=== PATIENT | female | born 1995 | race Caucasian/White ===

== ENCOUNTER 2024-12-21 14:13 | Emergency (ER) | payer MEDICAID, OTHER ==
[~2024-12-21] VITALS: Ht 170.2 cm; Wt 63.5 kg
[2024-12-21 14:15] VITALS: O2SAT 97
[2024-12-21] MEDS ORDERED: AMOX-427 PO (14:57)
[2024-12-21] MEDS ORDERED: FLUC200T PO (14:57)
[2024-12-21] MEDS ORDERED: DIAZ5TAB4 PO (14:57)
[2024-12-21] MEDS ORDERED: IBUP-1955 PO (14:57)
== END 2024-12-21 15:04 | disposition home or self-care (01) ==
LOC: ER 14:13
DX: K01.1 Impacted teeth (principal); Z60.2 Problems related to living alone
CPT/HCPCS: A4606; A4663

== ENCOUNTER 2025-01-21 11:37 | Emergency (ER) | payer MEDICAID ==
[~2025-01-21] VITALS: Ht 170.2 cm; Wt 61.2 kg
[~2025-01-21 11:37] MED LIST: AMOX-427 PO; DIAZ5TAB4 PO; FLUC200T PO; IBUP-1955 PO
[2025-01-21] MEDS ORDERED: DIAZ5TAB4 PO (12:44)
[2025-01-21 12:54] VITALS: BP 120/81; O2SAT 99
== END 2025-01-21 12:54 | disposition home or self-care (01) ==
LOC: ER 11:39
DX: F41.9 Anxiety disorder, unspecified (principal); Z88.6 Allergy status to analgesic agent; Z60.2 Problems related to living alone
CPT/HCPCS: A4606; A4663

== ENCOUNTER 2025-03-13 16:45 | Emergency (ER) | payer SELFPAY ==
[~2025-03-13] VITALS: Ht 170.2 cm; Wt 59.0 kg
[2025-03-13] MEDS ORDERED: DIAZ5TAB4 PO (17:31)
[2025-03-13] MEDS ORDERED: FLUC200T PO (17:31)
[2025-03-13 17:44] VITALS: BP 117/71; TEMP 98.6; O2SAT 100
== END 2025-03-13 17:38 | disposition home or self-care (01) ==
LOC: ER 16:50
DX: F41.9 Anxiety disorder, unspecified (principal); F17.210 Nicotine dependence, cigarettes, uncomplicated; Z88.6 Allergy status to analgesic agent; Z76.0 Encounter for issue of repeat prescription; Z60.2 Problems related to living alone
CPT/HCPCS: A4606; A4663

== ENCOUNTER 2025-04-21 14:36 | Emergency (ER) | payer MEDICAID ==
[~2025-04-21] VITALS: Ht 170.2 cm; Wt 59.0 kg
[2025-04-21 14:37] VITALS: BP 123/73; O2SAT 96
== END 2025-04-21 18:12 | disposition left against medical advice (07) ==
LOC: ER 14:36
DX: T78.40XA Allergy, unspecified, initial encounter (principal); Z53.21 Procedure and treatment not carried out due to patient leaving prior to being seen by health care provider; X58.XXXA Exposure to other specified factors, initial encounter
CPT/HCPCS: A4606; A4663

== ENCOUNTER 2025-04-24 15:51 | Emergency (ER) | payer MEDICAID ==
[~2025-04-24] VITALS: Ht 170.2 cm; Wt 59.0 kg
[2025-04-24 19:33] VITALS: BP 109/72
[2025-04-24] MEDS ORDERED: IBUP-1955 PO (21:51)
[2025-04-24 21:55] VITALS: BP 105/70; TEMP 98.6; O2SAT 98
== END 2025-04-24 21:55 | disposition home or self-care (01) ==
LOC: ER 15:51
DX: F41.9 Anxiety disorder, unspecified (principal); F17.210 Nicotine dependence, cigarettes, uncomplicated; Z76.0 Encounter for issue of repeat prescription; Z88.6 Allergy status to analgesic agent; Z60.2 Problems related to living alone
CPT/HCPCS: A4606; A4663

== ENCOUNTER 2025-05-08 19:08 | Emergency (ER) | payer MEDICAID, OTHER ==
[~2025-05-08] VITALS: Ht 170.2 cm; Wt 60.8 kg
[2025-05-08 19:11] VITALS: BP 93/58
[2025-05-08 19:54] LABS: *URINE HCG, QUAL NEGATIVE (NEGATIVE)
[2025-05-08] MEDS ORDERED: METR500T PO (19:59)
[2025-05-08] MEDS ORDERED: DROS4TAB PO (20:01)
[2025-05-08 20:11] VITALS: BP 101/59; TEMP 98; O2SAT 98
[2025-05-11 03:07] LABS: *CHLAMYDIA NAA Negative (Negative); *GC NAA Negative (Negative); *TRIC.VAG. NAA Negative (Negative)
== END 2025-05-08 20:10 | disposition home or self-care (01) ==
LOC: ER 19:20
DX: N89.8 Other specified noninflammatory disorders of vagina (principal); B96.89 Other specified bacterial agents as the cause of diseases classified elsewhere; F17.210 Nicotine dependence, cigarettes, uncomplicated; F41.9 Anxiety disorder, unspecified; Z76.0 Encounter for issue of repeat prescription; Z88.6 Allergy status to analgesic agent; Z60.2 Problems related to living alone
CPT/HCPCS: 84703; 87491; A4606; A4663

== ENCOUNTER 2025-06-10 13:33 | Emergency (ER) | payer MEDICAID, OTHER ==
[~2025-06-10] VITALS: Ht 170.2 cm; Wt 61.2 kg
[~2025-06-10 13:33] MED LIST changes: +DROS4TAB PO; +METR500T PO
[2025-06-10 13:35] VITALS: BP 124/63
[2025-06-10] MEDS ORDERED: DROS4TAB PO (14:12)
[2025-06-10 16:31] VITALS: BP 124/63; TEMP 97.8; O2SAT 97
== END 2025-06-10 14:22 | disposition home or self-care (01) ==
LOC: ER 13:42
DX: F41.9 Anxiety disorder, unspecified (principal); F17.210 Nicotine dependence, cigarettes, uncomplicated; Z76.0 Encounter for issue of repeat prescription; Z88.6 Allergy status to analgesic agent
CPT/HCPCS: A4606; A4663

== ENCOUNTER 2025-07-10 14:52 | Emergency (ER) | payer MEDICAID ==
[~2025-07-10] VITALS: Ht 170.2 cm; Wt 61.2 kg
[2025-07-10 15:28] VITALS: BP 109/66
[2025-07-10] MEDS ORDERED: ONDA4TAB11 PO (16:01)
[2025-07-10] MEDS ORDERED: METR-147 PO (16:01)
[2025-07-10] MEDS ORDERED: DEXT5TAB15 PO (16:01)
[2025-07-10 16:07] VITALS: BP 109/66; O2SAT 98
== END 2025-07-10 16:07 | disposition home or self-care (01) ==
LOC: ER 14:52
DX: N76.0 Acute vaginitis (principal); B96.89 Other specified bacterial agents as the cause of diseases classified elsewhere; F17.210 Nicotine dependence, cigarettes, uncomplicated; F41.9 Anxiety disorder, unspecified; Z88.6 Allergy status to analgesic agent
CPT/HCPCS: A4606; A4663

== ENCOUNTER 2025-08-21 16:24 | Emergency (ER) | payer MEDICAID ==
[~2025-08-21] VITALS: Ht 170.2 cm; Wt 61.2 kg
[2025-08-21 16:24] VITALS: BP 126/76
[~2025-08-21 16:24] MED LIST changes: +DEXT5TAB15 PO; -IBUP-1955 PO; +IBUP-2760 PO; +METR-147 PO; +ONDA-243 PO
[2025-08-21] MEDS ORDERED: DIAZ5TAB PO (18:00)
[2025-08-21] MEDS ORDERED: IBUP-2760 PO (18:00)
[2025-08-21 18:10] VITALS: BP 126/76; TEMP 97.9; O2SAT 98
== END 2025-08-21 18:11 | disposition home or self-care (01) ==
LOC: ER 16:24
DX: F41.0 Panic disorder [episodic paroxysmal anxiety] (principal); F17.210 Nicotine dependence, cigarettes, uncomplicated; Z88.6 Allergy status to analgesic agent
CPT/HCPCS: A4606; A4663